=== PATIENT | male | born 1955 | race Caucasian/White ===

== ENCOUNTER 2017-02-06 19:27 | Inpatient (IN) | payer OTHER ==
--- NOTE | 2017-02-06 19:59 | PDOC ---
History of Present Illness - General History Source: Patient, Spouse <JoseAlexandria starran - Last Filed: 02/07/17 02:06> - General History Source: Patient Exam Limitations: No Limitations - History of Present Illness Initial Comments: 02/06/17 20:31 The patient is a 61 year old male, with a significant past medical history of diabetes and anemia, who presents to the emergency department complaining of bilateral lower extremity swelling for approximately 2 weeks. The patient reports pain to his legs secondary to edema. He reports discomfort with walking due to edema. The patient denies any associated chest pain, shortness of breath , diaphoresis, or palpitations. He denies any trauma or recent travel. He denies any abdominal pain, nausea, vomiting, diarrhea, or constipation. He denies any dysuria, hematuria, frequency, or urgency. He denies any fever, chills, headache, or dizziness. Allergies: Penicillins Past Surgical History: Hernia repair Social History: Former smoker(Quit 2015). No ETOH or drug use <Rufina Gonzalez - Last Filed: 02/07/17 02:14> - General Chief Complaint: Edema Stated Complaint: PCP SENT/[facility] Time Seen by Provider: 02/06/17 19:57 Past History - Past Medical History Anemia: Yes Diabetes: Yes Other medical history: back problems - Surgical History GI Surgery: Yes (hernia) - Psycho/Social/Smoking Cessation Hx Suicidal Ideation: No Smoking History: Former smoker Have you smoked in the past 12 months: Yes If you are a former smoker, when did you quit?: 2016 Information on smoking cessation initiated: No <Dallas Kendrick - Last Filed: 02/07/17 02:06> <Rufina Gonzalez - Last Filed: 02/07/17 02:14> - Past Medical History Allergies/Adverse Reactions: Allergies Allergy/AdvReac Type Severity Reaction Status Date / Time Penicillins Allergy Verified 02/06/17 22:36 Home Medications: Ambulatory Orders Escitalopram Oxalate [Lexapro -] 20 mg PO DAILY 02/06/17 Review of Systems - Review of Systems Able to Perform ROS?: Yes Comments:: 02/06/17 20:31 CONSTITUTIONAL: Absent: fever, no chills, no fatigue EYES: Absent: visual changes ENT: Absent: ear pain, no sore throat CARDIOVASCULAR: Absent: chest pain, no palpitations RESPIRATORY: Absent: cough, no SOB GI: Absent: abdominal pain, no nausea, no vomiting, no constipation, no diarrhea GENITOURINARY: Absent: dysuria, no frequency, no hematuria MUSCULOSKELETAL: Present: +bilateral lower extremity swelling Absent: back pain, no arthralgia, no myalgia SKIN: Absent: rash NEURO: Absent: headache <Rufina Gonzalez - Last Filed: 02/07/17 02:14> *Physical Exam - Vital Signs Last Vital Signs Temp Pulse Resp BP Pulse Ox 97.5 F L 52 L 20 135/76 97 02/06/17 19:37 02/06/17 19:37 02/06/17 19:37 02/06/17 19:37 02/06/17 19:37 <Dallas Kendrick - Last Filed: 02/07/17 02:06> - Vital Signs Last Vital Signs Temp Pulse Resp BP Pulse Ox 97.5 F L 52 L 20 135/76 97 02/06/17 19:37 02/06/17 19:37 02/06/17 19:37 02/06/17 19:37 02/06/17 19:37 - Physical Exam Comments: 02/06/17 20:31 GENERAL: Well-appearing, well-nourished. No apparent distress. HEENT: Normocephalic, atraumatic. PERRL, EOM intact. CARDIOVASCULAR: Normal S1, S2. Regular rate and rhythm. PULMONARY: Clear to auscultation bilaterally. ABDOMEN: Soft, non-distended, non-tender. EXTREMITIES: +2 pitting edema to the bilateral lower extremities, from the top of the feet to just below the knees. Lower extremities not cold or hot to the touch. Calves are non-tender. No cords. No gross deformities. SKIN: Warm, dry. No rash NEUROLOGICAL: No focal neurological deficits. <Rufina Gonzalez - Last Filed: 02/07/17 02:14> Heart Score/ECG Review - ECG Intrepretation Comment:: 02/06/17 20:33 Vent Rate: 51 bpm IMPRESSION: Sinus bradycardia. Possible left atrial enlargement. <Rufina Gonzalez - Last Filed: 02/07/17 02:14> ED Treatment Course - LABORATORY CBC & Chemistry Diagram: 02/06/17 19:57 02/06/17 19:57 <Dallas Kendrick - Last Filed: 02/07/17 02:06> - LABORATORY CBC & Chemistry Diagram: 02/06/17 19:57 02/06/17 19:57 - ADDITIONAL ORDERS Additional order review: 02/06/17 19:57 RBC 3.70 L MCV 88.0 MCHC 32.7 RDW 15.1 MPV 9.4 Neutrophils % 55.0 Lymphocytes % 31.5 Monocytes % 10.0 Eosinophils % 2.2 Basophils % 1.3 - RADIOLOGY Radiograph Interpretation: 02/06/17 22:27 EXAM: CXR INTERPRETED BY: Dr. Carr REVIEWED BY: Dr. Kendrick IMPRESSION: Left basilar consolidation EXAM: Vascular US-2 legs INTERPRETED BY: Charles Carr REVIEWED BY: Dr. Kendrick IMPRESSION: No evidence of Deep Vein Thrombosis EXAM: CT Lumbar Spine INTERPRETED BY: Dr. Gomez REVIEWED BY: Dr. Kendrick IMPRESSION: Patient is status post L4-S1 fusion by means of plates and pedicular screws. The hardware appears in satisfactory position. Epidural catheter traverses the upper lumbar canal. Artifact from hardware degrades the images from L3-4 through L5. This precludes adequate evaluation of the canal or discs at these levels. There does appear to be canal stenosis at L3-4 secondary to disc bulging and posterior element hypertrophy. At T12-L1, canal is patent. At L1-2, there is disc bulging slightly indenting the canal. At L2-3 there is disc bulging and mild posterior element hypertrophy mildly narrowing the canal.. MR may be helpful to assess the degenerative disease. This results in so much artifact, myelography may be necessary. Urinary bladder is overdistended. Abundant stool in the rectosigmoid junction. <Rufina Gonzalez - Last Filed: 02/07/17 02:14> *DC/Admit/Observation/Transfer - Discharge Dispostion Admit: Yes <Dallas Kendrick - Last Filed: 02/07/17 02:06> - Attestations Scribe Attestion: 02/06/17 20:32 Documentation prepared by Rufina Gonzalez, acting as nuclear medical tech for Dallas Kendrick DO. <Rufina Gonzalez - Last Filed: 02/07/17 02:14> Diagnosis at time of Disposition: Lower extremity edema, Intractable low back pain, Bulging discs Low back pain Qualifiers: Chronicity: unspecified Back pain laterality: unspecified Sciatica presence: without sciatica Qualified Code(s): M54.5 - Low back pain - Referrals Referrals: Aurora Valle [Primary Care Provider] -
[2017-02-06 20:25] LABS: BASOPHIL 1.3 % (0-2.0); EOSINOPHIL 2.2 % (0-4.5); MCH 28.8 pg (25.7-33.7); MCHC 32.7 g/dl (32.0-35.9); MEAN PLT VOLUME 9.4 fl (7.5-11.1); PLATELET COUNT 176 K/MM3 (134-434); RDW 15.1 % (11.9-15.9); WHITE BLOOD COUNT 5.2 K/mm3 (4.0-10.0)
[2017-02-06] MEDS ORDERED: FUROSEMIDE 40 MG/4 ML INJECTABLE VIAL IVPUSH ONE ×2 (20:38→23:40)
[2017-02-06 20:39] LABS: INR 1.04 (0.82-1.09); PROTHROMBIN TIME (PATIENT) 11.5 SEC (9.98-11.88)
[2017-02-06] MEDS ORDERED: morphine CARPU-JECT 2 MG/1 ML DISP.SYRIN IVPUSH ONE (20:48)
[2017-02-06] MEDS ORDERED: morphine CARPU-JECT 4 MG/1 ML DISP.SYRIN ONE (20:51)
[2017-02-06] MEDS ORDERED: FUROSEMIDE 40 MG/4 ML INJECTABLE VIAL ONE (20:51)
[2017-02-06 21:08] LABS: ALBUMIN 3.3 g/dl (3.4-5.0); ALK PHOS 99 U/L (45-117); ANION GAP 7 (8-16); BILIRUBIN,TOTAL 0.2 mg/dL (0.2-1.0); CALCIUM 9.1 mg/dL (8.5-10.1); CO2 32 mmol/L (21-32); CREATININE 0.6 mg/dL (0.7-1.3); GLUCOSE,RANDOM 88 mg/dL (74-106); SGOT/AST 25 U/L (15-37); SGPT/ALT 24 U/L (12-78); TOT PROT 6.4 g/dl (6.4-8.2)
[2017-02-06 21:10] LABS: TROPONIN I < 0.02 ng/ml (0.00-0.05)
[2017-02-06] MEDS ORDERED: KETOROLAC TROMETHAMINE 30 MG/1 ML VIAL IVPUSH ONE (23:40)
[2017-02-06] MEDS ORDERED: HYDROmorphone HCL CARPU-JECT 1 MG/1 ML DISP.SYRIN IVPUSH ONE (23:51)
[2017-02-07] MEDS ORDERED: KETOROLAC TROMETHAMINE 30 MG/1 ML VIAL ONE (00:41)
[2017-02-07] MEDS ORDERED: HYDROmorphone HCL CARPU-JECT 1 MG/1 ML DISP.SYRIN ONE (00:41)
[2017-02-07] MEDS ORDERED: FUROSEMIDE 40 MG/4 ML INJECTABLE VIAL ONE (00:42)
[2017-02-07] MEDS ORDERED: DOCUSATE SODIUM 100 MG CAPSULE (FP) PO PRN (02:56)
--- NOTE | 2017-02-07 02:57 | PN ---
<Nayeli Masterson - Last Filed: 02/07/17 02:56> Teaching Attending Note Name of Resident: Ijeoma Bhat <Elizabeth Tom - Last Filed: 02/07/17 04:23> Teaching Attending Note ATTENDING PHYSICIAN STATEMENT I saw and evaluated the patient. I reviewed the resident's note and discussed the case with the resident. I agree with the resident's findings and plan as documented. SUBJECTIVE: 61 yo M with PMHx of DM who presents with bilateral LE worsening edema and back pain for the past 2 weeks. The patient reports increased discomfort and sensitivity both of his legs. He note his L foot is more sensitive to pain than his R foot. Patient is unable to ambulate and states he has to use a wheelchair. He also reports worsening back pain however denies any relief with his pain medications. He denies any recent trauma or recent travel. He denies any fever, chills, headache, or dizziness. He denies any abdominal pain, nausea , vomiting, diarrhea, or constipation. He denies any dysuria, hematuria, frequency, or urgency. PMHx:Anemia PSHx: Hernia repair Social hx: Former smoker (quit in 2016) Allergies: Penicillins OBJECTIVE: GENERAL: Awake, alert, and fully oriented, in no acute distress HEENT: Atraumatic. PERRLA, EOMI. Moist mucosa. No JVD LUNGS: No distress, speaks full sentences, clear to auscultation bilaterally HEART: Regular rate and rhythm, normal S1 and S2, no murmurs, rubs or gallops, peripheral pulses normal and equal bilaterally. ABDOMEN: +distended. +RLQ port. Nontender, normoactive bowel sounds. No guarding, no rebound. No masses EXTREMITIES: Normal inspection, Normal range of motion. + 3+ pitting edema. No clubbing or cyanosis. +Dilated vasculature on L haro. NEUROLOGICAL: Cranial nerves II through XII grossly intact. Normal speech, gait deferred, no focal sensorimotor deficits SKIN: Warm, Dry, normal turgor, no rashes or lesions noted. Laboratory Results - last 24 hr 02/06/17 02/06/17 02/06/17 19:57 19:57 19:57 WBC 5.2 RBC 3.70 L Hgb 10.6 L Hct 32.5 L MCV 88.0 MCHC 32.7 RDW 15.1 Plt Count 176 MPV 9.4 Neutrophils % 55.0 Lymphocytes % 31.5 Monocytes % 10.0 Eosinophils % 2.2 Basophils % 1.3 INR 1.04 Sodium 135 L Potassium 4.3 Chloride 96 L Carbon Dioxide 32 Anion Gap 7 L BUN 8 Creatinine 0.6 L Creat Clearance w eGFR > 60 Random Glucose 88 Calcium 9.1 Total Bilirubin 0.2 AST 25 ALT 24 Alkaline Phosphatase 99 Creatine Kinase 153 Creatine Kinase Index 1.4 CK-MB (CK-2) 2.145 CK-MB (CK-2) Rel Index Troponin I < 0.02 B-Natriuretic Peptide 245.28 H Total Protein 6.4 Albumin 3.3 L Blood Type Antibody Screen 02/06/17 02/06/17 02/06/17 19:57 19:57 21:13 WBC RBC Hgb Hct MCV MCHC RDW Plt Count MPV Neutrophils % Lymphocytes % Monocytes % Eosinophils % Basophils % INR Sodium Potassium Chloride Carbon Dioxide Anion Gap BUN Creatinine Creat Clearance w eGFR Random Glucose Calcium Total Bilirubin AST ALT Alkaline Phosphatase Creatine Kinase Creatine Kinase Index CK-MB (CK-2) CK-MB (CK-2) Rel Index Cancelled Troponin I B-Natriuretic Peptide Total Protein Albumin Blood Type O POSITIVE O POSITIVE Antibody Screen Negative ASSESSMENT AND PLAN: XR Morphine breakthrough Q6 hrs Dose of Lovenox, continue if DVT confirmed Get Echo Low dose Chest CT PT consult Documentation prepared by Elizabeth Tom, acting as medical program specialist for Nayeli Masterson MD.
[2017-02-07] MEDS ORDERED: morphine CARPU-JECT 2 MG/1 ML DISP.SYRIN IVPUSH PRN (02:58)
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
[2017-02-07] MEDS ORDERED: HEPARIN NA (PORCINE) 5,000 UNITS/ML 1ML VIAL SQ SCH (06:00)
[2017-02-07] MEDS ORDERED: HYDROmorphone HCL CARPU-JECT 1 MG/1 ML DISP.SYRIN IVPUSH PRN (09:18)
--- NOTE | 2017-02-07 09:38 | EKG ---
Test Reason : Blood Pressure : / mmHG Vent. Rate : 051 BPM Atrial Rate : 051 BPM P-R Int : 176 ms QRS Dur : 082 ms QT Int : 422 ms P-R-T Axes : 068 042 041 degrees QTc Int : 388 ms POOR DATA QUALITY, INTERPRETATION MAY BE ADVERSELY AFFECTED SINUS BRADYCARDIA POSSIBLE LEFT ATRIAL ENLARGEMENT NO PREVIOUS ECGS AVAILABLE Confirmed by MARGE MILLER MD ([id number]) on 02/07/2017 9:38:01 AM Referred By: Confirmed By:MARGE MILLER MD
[2017-02-07] MEDS: ESCITALOPRAM OXALATE 20 MG TABLET (FP) PO SCH (09:47)
[2017-02-07] MEDS: ENOXAPARIN NA (PORCINE) 40 MG/0.4 ML DISP.SYRIN SQ SCH (09:47)
[2017-02-07] MEDS: FUROSEMIDE 40 MG/4 ML INJECTABLE VIAL IVPUSH SCH (09:47)
[2017-02-07] MEDS ORDERED: morphine SO4 SUSTAINED ACTING 15 MG TABLET.SA ONE (09:51)
[2017-02-07] MEDS ORDERED: morphine SO4 SUSTAINED ACTING 15 MG TABLET.SA PO SCH (10:00)
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
[2017-02-07 10:38] LABS: BASOPHIL 1.4 % (0-2.0); EOSINOPHIL 2.8 % (0-4.5); MCH 28.9 pg (25.7-33.7); MEAN CELL VOLUME 87.5 fl (80-96); MEAN PLT VOLUME 8.9 fl (7.5-11.1); NEUTROPHILS 61.7 % (42.8-82.8); PLATELET COUNT 184 K/MM3 (134-434); RDW 15.4 % (11.9-15.9); WHITE BLOOD COUNT 5.4 K/mm3 (4.0-10.0)
[2017-02-07 11:03] LABS: ALBUMIN 3.2 g/dl (3.4-5.0); ALK PHOS 104 U/L (45-117); ANION GAP 5 (8-16); BILIRUBIN,TOTAL 0.3 mg/dL (0.2-1.0); CALCIUM 9.4 mg/dL (8.5-10.1); CO2 37 mmol/L (21-32); CREATININE 0.8 mg/dL (0.7-1.3); GLUCOSE,RANDOM 107 mg/dL (74-106); SGOT/AST 29 U/L (15-37); SGPT/ALT 24 U/L (12-78); TOT PROT 6.5 g/dl (6.4-8.2)
[2017-02-07 11:12] LABS: FERRITIN 69.63 ng/ml (16.4-293.9); THYROID STIMULATING HORMONE 1.93 uIU/ml (0.358-3.74)
[2017-02-07] MEDS ORDERED: BISACODYL 10 MG SUPP.RECT RC ONE (15:00)
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
[2017-02-07 16:37] VITALS: BMI 26.2
[2017-02-07] MEDS ORDERED: SENNOSIDES 8.8 MG/5 ML BULK BOTTLE PO STA (17:54)
[2017-02-07] MEDS ORDERED: MAGNESIUM HYDROX 2400MG/30ML ORAL SUSPENSION 30 ML CUP PO ONE ×2 (17:54→18:45)
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
[2017-02-07] MEDS ORDERED: BISACODYL 10 MG SUPP.RECT PR ONE (18:53)
[2017-02-08 06:06] LABS: SERUM IRON 58 ug/dL (38-169); TOTAL IRON BINDING CAPACITY 326 ug/dL (250-450); UIBC 268 ug/dL (111-343)
[2017-02-08 07:49] LABS: BASOPHIL 0.7 % (0-2.0); EOSINOPHIL 1.8 % (0-4.5); MCH 29.1 pg (25.7-33.7); MCHC 33.3 g/dl (32.0-35.9); MEAN CELL VOLUME 87.4 fl (80-96); MEAN PLT VOLUME 9.5 fl (7.5-11.1); NEUTROPHILS 74.5 % (42.8-82.8); PLATELET COUNT 170 K/MM3 (134-434); RDW 15.4 % (11.9-15.9); WHITE BLOOD COUNT 7.3 K/mm3 (4.0-10.0)
[2017-02-08 08:21] LABS: ANION GAP 11 (8-16); CALCIUM 8.9 mg/dL (8.5-10.1); CO2 28 mmol/L (21-32); CREATININE 0.7 mg/dL (0.7-1.3); GLUCOSE,RANDOM 120 mg/dL (74-106)
[2017-02-08] MEDS: ESCITALOPRAM OXALATE 20 MG TABLET (FP) PO SCH (09:38)
[2017-02-08] MEDS: ENOXAPARIN NA (PORCINE) 40 MG/0.4 ML DISP.SYRIN SQ SCH (09:38)
[2017-02-08] MEDS: FUROSEMIDE 40 MG/4 ML INJECTABLE VIAL IVPUSH SCH (09:38)
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
[2017-02-08 15:23] VITALS: BP 101/66; PULSE 81; TEMP 97.9
== END 2017-02-08 15:32 | disposition home or self-care (01) | DRG 392 ==
LOC: JER 19:27 → JERBED 02-07 02:09 → UNDOADMIN 02-07 02:15 → JERBED 02-07 02:15 → J5S 02-07 14:35
PROVIDERS: ADMIT Internal Medicine; ATTEND Internal Medicine
DX: K59.09 Other constipation (principal); E11.9 Type 2 diabetes mellitus without complications; D64.9 Anemia, unspecified; M54.5 Low back pain; R14.0 Abdominal distension (gaseous); I25.10 Atherosclerotic heart disease of native coronary artery without angina pectoris; M51.36 Other intervertebral disc degeneration, lumbar region; R00.1 Bradycardia, unspecified; Z87.891 Personal history of nicotine dependence; Z88.0 Allergy status to penicillin; Z95.5 Presence of coronary angioplasty implant and graft
CPT/HCPCS: 36415; 71010-TC; 71250-TC; 72131-TC; 74020-TC; 80048; 80053; 80061; 82550; 82553; 82728; 83540; 83550; 83721; 83880; 84439; 84443; 84484; 85025; 85610; 86850; 86900; 86901; 93005; 93010; 93306-TC; 93970-TC; 99284-25

== ENCOUNTER 2018-04-02 16:22 | Emergency (ER) | payer OTHER ==
[2018-04-02 16:27] VITALS: BP 136/80; PULSE 97; TEMP 98.3; BMI 31.7
--- NOTE | 2018-04-02 17:29 | PDOC ---
Attending Attestation - Resident Resident Name: Theron Stringer - ED Attending Attestation I have performed the following: I have examined & evaluated the patient, The case was reviewed & discussed with the resident, I agree w/resident's findings & plan, Exceptions are as noted - Medical Decision Making 04/02/18 17:29 I, Dr. Ginger Lind, DO, attest that this document has been prepared under my direction and personally reviewed by me in its entirety. I further attest, that it accurately reflects all work, treatment, procedures and medical decision -making performed by me. 04/02/18 17:39 62yo male with chronic back pain and leg pain - pt with a intrathecal pain pump with dilaudid and baclofen infusions -saw pain management in [place] yesterday - has had increasing freq attacks of pain to feet and legs over the last 3 weeks -pain management ordered MRI (needs open) of the thoracic and lumbar spine to r/ o granuloma to lumbar spine - scheduled for apr 07 -pt with acute onset of b/l foot pain R>L that started today - 2nd er visit for the pain - went to [facility] the first time - received IV dilaudid and felt better -pt with pulses and sensation b/l -feels electrical shock to LE -suspect neuropathic pain with breakthrough pain - neuro intact -will discuss with patients pain management and will medicate with fentanyl and valium for pain 04/02/18 19:47 pt with improved pain stable for d/c to home pt stable for d/c to home at this time <Ginger Lind - Last Filed: 04/02/18 19:47> - HPI HPI: 04/02/18 20:17 The patient is a 62 year old male, with a significant PMH of chronic back and leg pain, on lidocaine patch, intrathecal pump, CHF, DVT on eliquis, who presents to the emergency department with progressively worsening pain in bilateral legs. The patient denies any recent injuries or trauma. The patient states he follows with pain management (Cynthia Guerra E MERCHANT [phone]) and has an upcoming appointment for MRI on 04/07. The patient denies chest pain, shortness of breath, headache and dizziness. Denies fever, chills, nausea, vomit, diarrhea and constipation. Denies dysuria, frequency, urgency and hematuria. Allergies: Penicilins. - Physicial Exam PE: 04/02/18 21:16 GENERAL: Awake, alert, and fully oriented, in no acute distress HEAD: No signs of trauma EYES: PERRLA, EOMI, sclera anicteric, conjunctiva clear ENT: Auricles normal inspection, hearing grossly normal, nares patent, oropharynx clear without exudates. Moist mucosa NECK: Normal ROM, supple, no lymphadenopathy, JVD, or masses LUNGS: Breath sounds equal, clear to auscultation bilaterally. No wheezes, and no crackles HEART: Regular rate and rhythm, normal S1 and S2, no murmurs, rubs or gallops ABDOMEN: Soft, nontender, normoactive bowel sounds. No guarding, no rebound. No masses EXTREMITIES: (+) Pain to palpation in lower extremities bilaterally. (+) Trace pitting edema. Pulses intact. Sensation intact throughout. Normal range of motion. No clubbing or cyanosis. No cords, erythema. NEUROLOGICAL: Cranial nerves II through XII grossly intact. Normal speech. SKIN: Warm, Dry, normal turgor, no rashes or lesions noted. <Akash Forbes - Last Filed: 04/02/18 21:19> Attestations - Attestations 04/02/18 20:17 Documentation prepared by Akash Forbes, acting as bio medical technician for Ginger iLnd DO. <Akash Forbes - Last Filed: 04/02/18 21:19>
[2018-04-02] MEDS ORDERED: diazePAM 5 MG TABLET PO ONE (17:47)
[2018-04-02] MEDS ORDERED: diazePAM 5 MG TABLET ONE (18:24)
--- NOTE | 2018-04-02 18:27 | PDOC ---
History of Present Illness <Ginger Lind - Last Filed: 04/02/18 19:44> - General History Source: Patient Exam Limitations: No Limitations - History of Present Illness Initial Comments: 04/02/18 18:20 Patient is a 62M with history of chronic back and leg pain, on lidocaine patch, intrathecal pump, CHF, DVT on eliquis here today complaining of increased pain in the legs, left more than right. Denies fevers, chills, nausea, and vomiting. Denies trauma. Pain worsened started today, but patient has had another prior ED visit at [facility] for similar problem. Patient is followed by outpatient pain management that is due to change medications in intrathecal delivery system (Cynthia Guerra [employer] [phone]) and for outpatient MRI next week. Denies chest pain, shortness of breath, back pain, abdominal pain. <Theron Stringer - Last Filed: 04/02/18 20:03> - General Chief Complaint: Chronic pain Stated Complaint: BURNING SENSATION Time Seen by Provider: 04/02/18 17:13 Past History <Ginger Lind - Last Filed: 04/02/18 19:44> - Past Medical History Anemia: Yes Diabetes: No - Surgical History GI Surgery: Yes (hernia) Orthopedic Surgery: Yes (back surgeries x4) - Suicide/Smoking/Psychosocial Hx Smoking History: Never smoked Have you smoked in the past 12 months: Yes Number of Cigarettes Smoked Daily: 0 If you are a former smoker, when did you quit?: 2016 Cigars Per Day: 0 Information on smoking cessation initiated: No Hx Alcohol Use: No Drug/Substance Use Hx: No Substance Use Type: None Hx Substance Use Treatment: No <Theron Stringer - Last Filed: 04/02/18 20:03> - Past Medical History Allergies/Adverse Reactions: Allergies Allergy/AdvReac Type Severity Reaction Status Date / Time Penicillins Allergy Verified 02/06/17 22:36 Home Medications: Ambulatory Orders Escitalopram Oxalate [Lexapro -] 20 mg PO DAILY 02/06/17 Diazepam [Valium] 2 mg PO DAILY PRN #5 tablet MDD 1 tab daily 04/02/18 Review of Systems - Review of Systems Able to Perform ROS?: Yes Comments:: 04/02/18 18:27 GENERAL/CONSTITUTIONAL: No fever or chills. No weakness. HEAD, EYES, EARS, NOSE AND THROAT: No change in vision. No sore throat. CARDIOVASCULAR: No chest pain or shortness of breath RESPIRATORY: No cough, wheezing, or hemoptysis. GASTROINTESTINAL: No nausea, vomiting, diarrhea or constipation. GENITOURINARY: No dysuria, frequency, or change in urination. MUSCULOSKELETAL: +foot and leg pain bilaterally No neck or back pain. SKIN: No rash NEUROLOGIC: No headache, vertigo, loss of consciousness, or change in strength/ sensation. ENDOCRINE: No increased thirst. No abnormal weight change HEMATOLOGIC/LYMPHATIC: No anemia, easy bleeding, or history of blood clots. ALLERGIC/IMMUNOLOGIC: No hives or skin allergy. <Theron Stringer - Last Filed: 04/02/18 20:03> *Physical Exam - Vital Signs Last Vital Signs Temp Pulse Resp BP Pulse Ox 98.3 F 97 H 20 136/80 99 04/02/18 16:26 04/02/18 16:26 04/02/18 16:26 04/02/18 16:26 04/02/18 16:26 <Ginger Lind - Last Filed: 04/02/18 19:44> - Vital Signs Last Vital Signs Temp Pulse Resp BP Pulse Ox 98.3 F 97 H 20 136/80 99 04/02/18 16:26 04/02/18 16:26 04/02/18 16:26 04/02/18 16:26 04/02/18 16:26 - Physical Exam Comments: 04/02/18 18:28 GENERAL: Awake, alert, and fully oriented, in no acute distress LEGS: Trace pitting edema bilaterally, pain to light palpation bilaterally, out of proportion. Pain extends to knee in left, to ankle in right. No tense compartments. Normal pulses, movement, well perfused. HEAD: No signs of trauma, normocephalic, atraumatic EYES: PERRLA, EOMI, sclera anicteric, conjunctiva clear ENT: Auricles normal inspection, hearing grossly normal, nares patent, oropharynx clear without exudates. Moist mucosa NECK: Normal ROM, supple, no lymphadenopathy, JVD, or masses LUNGS: No distress, speaks full sentences, clear to auscultation bilaterally HEART: Regular rate and rhythm, normal S1 and S2, no murmurs, rubs or gallops, peripheral pulses normal and equal bilaterally. ABDOMEN: Soft, nontender, normoactive bowel sounds. No guarding, no rebound. No masses NEUROLOGICAL: Cranial nerves II through XII grossly intact. Normal speech, no focal sensorimotor deficits SKIN: Warm, Dry, normal turgor, no rashes or lesions noted. <Theron Stringer - Last Filed: 04/02/18 20:03> ED Treatment Course - Medications Given in the ED: ED Medications Discontinued Medications Generic Name Dose Route Start Last Admin Trade Name Freq PRN Reason Stop Dose Admin Diazepam 5 mg 04/02/18 17:47 04/02/18 18:30 Valium - PO 04/02/18 17:48 5 mg ONCE ONE Administration Fentanyl 100 mcg 04/02/18 17:47 04/02/18 18:30 Sublimaze Injection - IVPUSH 04/02/18 17:48 100 mcg ONCE ONE Administration <Ginger Lind - Last Filed: 04/02/18 19:44> Medical Decision Making - Medical Decision Making 04/02/18 18:29 Patient is 62M with history of chronic back/leg pain, DVT, CHF here today with leg pain. Vital signs normal and stable. Do not believe that patient has compartment syndrome with no trauma or recent exercise. No blood clot or bleed into leg suspected. Will treat with fentanyl and valium to stablize patient's pain. Will then discharge home with outpatient follow up. 04/02/18 19:23 Patient reassessed. Pain controlled, willing to go home. Will discharge with several valium for spasmodic component of pain. Given strict instructions to take valium while laying, made risk of falls clear. Patient to follow up with pain management practice. <Theron Stringer - Last Filed: 04/02/18 20:03> *DC/Admit/Observation/Transfer <Ginger Lind - Last Filed: 04/02/18 19:44> - Discharge Dispostion Decision to Admit order: No <Theron Stringer - Last Filed: 04/02/18 20:03> Diagnosis at time of Disposition: Leg pain - Discharge Dispostion Disposition: HOME Condition at time of disposition: Improved - Prescriptions Prescriptions: Diazepam [Valium] 2 mg PO DAILY PRN #5 tablet MDD 1 tab daily PRN Reason: Pain - Patient Instructions Additional Instructions: Please return if you have any new, worsening or concerning symptoms. Please avoid activity while taking the valium, as it will increase your chances of falling. Please call your pain management doctor tomorrow.
== END 2018-04-02 21:01 | disposition home or self-care (01) ==
LOC: JER 16:22
PROC: 3E033NZ Introduction of Analgesics, Hypnotics, Sedatives into Peripheral Vein, Percutaneous Approach (ICD-10-PCS; principal; 2018-04-02)
DX: M79.605 Pain in left leg (principal); M79.604 Pain in right leg; G89.29 Other chronic pain; I50.9 Heart failure, unspecified; I82.409 Acute embolism and thrombosis of unspecified deep veins of unspecified lower extremity; Z79.01 Long term (current) use of anticoagulants; M54.9 Dorsalgia, unspecified; Z97.8 Presence of other specified devices
CPT/HCPCS: 99281-25